=== PATIENT | male | born 1960 | race Caucasian/White ===

== ENCOUNTER 2022-07-08 10:01 | Day surgery (SDC) | payer BC ==
[~2022-07-08 10:01] MED LIST: Lactated Ringers 1,000 ML IV SCH; Propofol 200 MG/20 ML SDV ONE
[2022-07-08] MEDS ORDERED: Lactated Ringers 1,000 ML IV SCH (11:30)
[2022-07-08 11:58] VITALS: BP 100/60; PULSE 61
== END 2022-07-08 12:15 | disposition home or self-care (01) ==
LOC: MW.SDS 10:01
PROVIDERS: ATTEND Surgery
DX: Z12.11 Encounter for screening for malignant neoplasm of colon (principal); K57.30 Diverticulosis of large intestine without perforation or abscess without bleeding; I10 Essential (primary) hypertension; M19.90 Unspecified osteoarthritis, unspecified site; E66.01 Morbid (severe) obesity due to excess calories; G47.33 Obstructive sleep apnea (adult) (pediatric); G43.909 Migraine, unspecified, not intractable, without status migrainosus; Z79.899 Other long term (current) drug therapy; Z98.890 Other specified postprocedural states; Z68.41 Body mass index [BMI] 40.0-44.9, adult; Z87.891 Personal history of nicotine dependence
CPT/HCPCS: 45378; J2704; J7120

== ENCOUNTER 2022-07-18 06:36 | Day surgery (SDC) | payer BC ==
[~2022-07-18 06:36] MED LIST changes: -Propofol 200 MG/20 ML SDV ONE; +ceFAZolin 2 GM in Premix Bag 1 BAG IV SCH
[2022-07-18] MEDS ORDERED: Bupivacaine 0.5% 30 ML SDV ONE ×2 (07:24→07:28)
[2022-07-18] MEDS ORDERED: Bupivacaine 25%/EPINEPHrine/PF 30 ML ONE (07:28)
[2022-07-18] MEDS ORDERED: Dexamethasone 4 MG/ML 5 ML MDV ONE (07:32)
[2022-07-18] MEDS ORDERED: Propofol 200 MG/20 ML SDV ONE (07:32)
[2022-07-18] MEDS ORDERED: Rocuronium Bromide 50 MG/5 ML Syringe ONE (07:32)
[2022-07-18] MEDS ORDERED: Sugammadex Sodium 200 MG/2 ML VIAL ONE (07:32)
[2022-07-18] MEDS ORDERED: Ondansetron 4 MG/2 ML SDV ONE (07:32)
[2022-07-18] MEDS ORDERED: fentaNYL 100 MCG/2 ML SDV ONE (07:32)
[2022-07-18] MEDS ORDERED: Ketorolac 30 MG/ML SDV ONE (07:32)
[2022-07-18] MEDS ORDERED: Lidocaine 2% 5 ML SDV ONE (07:32)
[2022-07-18] MEDS ORDERED: Ondansetron 4 MG/2 ML SDV IVPUSH PRN (07:41)
[2022-07-18] MEDS ORDERED: Albuterol 0.083% 2.5 MG/3 ML Neb Soln NEB PRN (07:41)
[2022-07-18] MEDS ORDERED: Metoclopramide 10 MG/2 ML SDV IVPUSH PRN (07:41)
[2022-07-18] MEDS ORDERED: HYDROmorphone 1 MG/ML Syringe IVPUSH PRN (07:41)
[2022-07-18] MEDS ORDERED: Naloxone 0.4 MG/ML SDV IVPUSH PRN (07:41)
[2022-07-18] MEDS ORDERED: fentaNYL 50 MCG/ML SDV IVPUSH PRN (07:41)
[2022-07-18] MEDS ORDERED: Morphine 2 MG/ML SYRINGE IVPUSH PRN (07:41)
[2022-07-18] MEDS ORDERED: ceFAZolin 1 GM Vial ONE (08:12)
[2022-07-18] MEDS ORDERED: ceFAZolin 2 GM Vial ONE (08:12)
[2022-07-18] MEDS ORDERED: ePHEDrine 50 MG/ML SDV ONE (09:04)
[2022-07-18] MEDS ORDERED: Acetaminophen/HYDROcodone 325-5 MG Tab PO PRN (09:47)
[2022-07-18] MEDS ORDERED: Morphine 4 MG/ML Syringe IVPUSH PRN (09:47)
[2022-07-18] MEDS ORDERED: Lactated Ringers 1,000 ML IV SCH (10:00)
[2022-07-18 10:53] VITALS: BP 117/58; PULSE 73
== END 2022-07-18 10:47 | disposition home or self-care (01) ==
LOC: MW.SDS 06:36
PROVIDERS: ATTEND Surgery
DX: K42.0 Umbilical hernia with obstruction, without gangrene (principal); M19.90 Unspecified osteoarthritis, unspecified site; I10 Essential (primary) hypertension; G43.909 Migraine, unspecified, not intractable, without status migrainosus; E66.01 Morbid (severe) obesity due to excess calories; G47.30 Sleep apnea, unspecified; Z79.899 Other long term (current) drug therapy; Z98.890 Other specified postprocedural states; Z87.891 Personal history of nicotine dependence; Z68.41 Body mass index [BMI] 40.0-44.9, adult
CPT/HCPCS: 49592; J0690; J1100; J2704; J3010; J3490; J7120; 00790; 64488; J1885; J2405

== ENCOUNTER 2022-11-07 08:52 | Day surgery (SDC) | payer BC ==
[~2022-11-07 08:52] MED LIST changes: +Dexamethasone 4 MG/ML 5 ML MDV ONE; +Midazolam 1 MG/ML 2 ML SDV ONE; +Ondansetron 4 MG/2 ML SDV ONE; +Propofol 200 MG/20 ML SDV ONE; -ceFAZolin 2 GM in Premix Bag 1 BAG IV SCH; +ceFAZolin 2 GM in Sodium Chloride 0.9% 50 ML IV ONE; +fentaNYL 250 MCG/5 ML SDV ONE
[2022-11-07] MEDS ORDERED: Dexmedetomidine 200 MCG/2 ML SDV IV ONE (08:53)
[2022-11-07] MEDS ORDERED: ceFAZolin 1 GM Vial ONE ×2 (09:43→10:41)
[2022-11-07] MEDS ORDERED: Bupivacaine 0.5% 30 ML SDV ONE (09:43)
[2022-11-07] MEDS ORDERED: Ropivacaine 0.5% 5 MG/ML 30 ML SDV ONE (10:20)
[2022-11-07] MEDS ORDERED: Rocuronium Bromide 50 MG/5 ML Syringe ONE ×2 (10:20→11:33)
[2022-11-07] MEDS ORDERED: Water For Injection, Sterile 20 ML ONE (10:41)
[2022-11-07] MEDS ORDERED: Sugammadex Sodium 200 MG/2 ML VIAL ONE (11:20)
[2022-11-07] MEDS ORDERED: Acetaminophen/HYDROcodone 325-5 MG Tab PO PRN (12:57)
[2022-11-07] MEDS ORDERED: Morphine 4 MG/ML Syringe IVPUSH PRN (12:57)
[2022-11-07] MEDS ORDERED: Lactated Ringers 1,000 ML IV SCH (13:00)
[2022-11-07 14:16] VITALS: BP 136/60; PULSE 69
== END 2022-11-07 14:30 | disposition home or self-care (01) ==
LOC: MW.SDS 08:52
PROVIDERS: ATTEND Surgery
DX: K42.0 Umbilical hernia with obstruction, without gangrene (principal); I10 Essential (primary) hypertension; E66.01 Morbid (severe) obesity due to excess calories; K43.2 Incisional hernia without obstruction or gangrene; M18.0 Bilateral primary osteoarthritis of first carpometacarpal joints; G47.30 Sleep apnea, unspecified; Z86.79 Personal history of other diseases of the circulatory system; Z68.41 Body mass index [BMI] 40.0-44.9, adult; Z79.899 Other long term (current) drug therapy; Z87.891 Personal history of nicotine dependence
CPT/HCPCS: 49616; C1781; J0690; J1100; J2250; J2405; J2704; J2795; J3010; J3490; J7120; 00840; 64488